=== PATIENT | female | born 1975 ===

== ENCOUNTER → 2017-04-12 | Outpatient (CLI) | payer BC ==
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
== END | disposition home or self-care (01) ==
LOC: RAD 10:34
DX: M25.512 Pain in left shoulder (principal); M54.5 Low back pain
CPT/HCPCS: 72110